=== PATIENT | female | born 1960 | race African-American/Black ===

== ENCOUNTER 2023-09-27 14:24 | Emergency (ER) | payer OTHER ==
[~2023-09-27] VITALS: Ht 165.1 cm; Wt 75.0 kg
[2023-09-27 14:30] VITALS: O2SAT 100
[2023-09-27] MEDS ORDERED: CEFTRIAXONE 1GM PREMIX 50 ML IV ONE (14:45)
[2023-09-27] MEDS ORDERED: SODIUM CHLORIDE 0.9% 1000ML BAG (SEPSIS BOLUS) IV ONE (14:45)
[2023-09-27 16:40] LABS: BASOPHILS % 0.5 % (0.0-2.0); EOSINOPHILS % 0.7 % (0.0-5.0); HEMATOCRIT. 29.2 % (36.0-48.0); HEMOGLOBIN. 9.6 g/dL (12.0-16.0); LYMPHOCYTES % 10.2 % (20.0-50.0); MEAN CORPUSCULAR HEMOGLOBIN 31.1 pg (28.0-32.0); MEAN CORPUSCULAR HGB CONC 32.9 g/dL (31.0-37.0); MEAN CORPUSCULAR VOLUME 94.6 fL (81.0-99.0); MONOCYTES % 3.7 % (2.0-8.0); NEUTROPHILS % 84.9 % (40.0-76.0); PLATELET 151 x1000/uL (130-400); RED BLOOD CELL COUNT 3.08 mill/uL (4.2-5.4); RED CELL DISTRIBUTION WIDTH 16.1 % (11.6-14.6); WHITE BLOOD COUNT 4.4 x1000/uL (4.5-11.0)
[2023-09-27 16:51] LABS: ALANINE AMINOTRANSFERASE 14 IU/L (10-49); ALBUMIN 4.1 g/dL (3.2-4.8); ASPARTATE AMINOTRANSFERASE 39 IU/L (<34); BILIRUBIN TOTAL 0.8 mg/dL (0.1-1.0); CALCIUM 9.1 mg/dL (8.7-10.4); CARBON DIOXIDE 29 mEq/L (21-32); CHLORIDE 99 mEq/L (98-107); CREATININE 0.8 mg/dL (0.6-1.0); GLUCOSE 67 mg/dL (70-105); INR 1.1; POTASSIUM 3.8 mEq/L (3.5-5.1); PROTHROMBIN TIME 11.6 sec (9.6-11.0); SODIUM 135 mEq/L (136-145); TROPONIN I HIGH SENSITIVITY 11 ng/L (3.0-34); UREA NITROGEN BLOOD 11 mg/dL (9-23)
[2023-09-27 17:34] LABS: LACTIC ACID 2.3 mmol/L (0.4-2.0)
[2023-09-27] MEDS ORDERED: SODIUM CHLORIDE 0.9% 1,000 ML IV ONE (17:45)
[2023-09-27 22:41] VITALS: BP 96/75; PULSE 105; RESP 15; TEMP 99.4
== END 2023-09-27 21:00 | disposition short-term general hospital (02) ==
LOC: ER 15:13
DX: R53.1 Weakness (principal); R10.84 Generalized abdominal pain; R50.9 Fever, unspecified; D64.9 Anemia, unspecified; F31.9 Bipolar disorder, unspecified; F20.9 Schizophrenia, unspecified
CPT/HCPCS: 80053; 83605; 85025; 85610; 87040; 84484; 36415; 84145; 71045; 70450; 74176; 93005; 96365; 96366; 99285; J0696; J7030; Z7610